=== PATIENT | male | born 1995 | race Caucasian/White ===

== ENCOUNTER 2020-12-30 02:34 | Day surgery (SDCO) | payer OTHER ==
[~2020-12-30] VITALS: Ht 177.8 cm; Wt 122.6 kg
[2020-12-30 02:59] LABS: HCT 46.6 % (42.0-52.0); HGB 15.6 g/dl (13.2-18.0); MCH 30.2 pg (25.0-31.0); MCHC 33.5 g/dL (32.0-36.0); MCV 90.1 fL (78.0-100.0); RBC 5.17 M/uL (4.70-6.00); RDW 13.2 % (11.5-14.0); WBC 9.6 K/uL (4.0-10.5)
[2020-12-30 03:25] LABS: BUN/CREAT RATIO (CALC) 14.6 RATIO; CREATININE 0.82 mg/dL (0.67-1.17); PHOSPHORUS 3.2 mg/dL (2.6-4.7); POTASSIUM 4.1 mmol/L (3.5-5.1)
[2020-12-30 03:40] LABS: INR 1.09 (0.9-1.2); PROTHROMBIN TIME 13.5 SECONDS (11.8-13.4)
[2020-12-30] MEDS ORDERED: PAXIL10 M1 PO (09:33)
[2020-12-30] MEDS ORDERED: ASPIRIN EC81 MG PO (09:52)
[2020-12-30] MEDS ORDERED: TOPROL XL 25MG25 MG PO (11:57)
== END 2020-12-30 14:22 | disposition home or self-care (01) ==
LOC: FER 02:34 → FTCU 06:32
PROVIDERS: Emergency Medicine; ADMIT Internal Medicine
DX: I48.0 Paroxysmal atrial fibrillation (principal); F17.210 Nicotine dependence, cigarettes, uncomplicated; F41.1 Generalized anxiety disorder; Z20.822 Contact with and (suspected) exposure to COVID-19; N20.0 Calculus of kidney; R91.8 Other nonspecific abnormal finding of lung field; R06.02 Shortness of breath; I51.7 Cardiomegaly
CPT/HCPCS: 36415; 71275; 80048; 83735; 84100; 84443; 84484; 85610; 85730; 93005; G0378; J7030; Q9967; U0002